=== PATIENT | male | born 1970 | race Caucasian/White ===

== ENCOUNTER → 2019-05-18 | Outpatient (CLI) | payer OTHER ==
[~2019-05-18] MED LIST: HYDACE10B PO; HYDCHL25 PO; LISI5 PO; META800 PO; NAPR500 PO
== END ==
LOC: PLD 09:02 → LAB SHORT 09:02
DX: D48.5 Neoplasm of uncertain behavior of skin (principal)
CPT/HCPCS: 88305

== ENCOUNTER 2023-10-20 07:29 | Emergency (ER) | payer OTHER ==
[~2023-10-20] VITALS: Ht 177.8 cm; Wt 102.1 kg
[~2023-10-20 07:29] MED LIST changes: +Doxycycline Mo100 M1 PO; +Labetalol HCl300 MG PO
[2023-10-20 07:39] VITALS: BP 176/108
== END 2023-10-20 08:43 | disposition home or self-care (01) ==
LOC: ER 07:29
DX: S93.402A Sprain of unspecified ligament of left ankle, initial encounter (principal); I10 Essential (primary) hypertension; Z79.899 Other long term (current) drug therapy; Z88.0 Allergy status to penicillin; W13.2XXA Fall from, out of or through roof, initial encounter
CPT/HCPCS: 29515; 73610; 99283-25; A9270